=== PATIENT | female | born 1985 | race Caucasian/White ===

== ENCOUNTER 2018-03-22 16:52 | Inpatient (IN) | payer MEDICAID, OTHER ==
[~2018-03-22] VITALS: Ht 154.9 cm; Wt 74.8 kg
[~2018-03-22 16:52] MED LIST: PANT40TA25 PO; RISP3TAB6 PO
[2018-03-22] MEDS ORDERED: QUET200T PO (17:51)
[2018-03-22] MEDS ORDERED: BACI30OI10 TP (17:52)
[2018-03-22] MEDS ORDERED: DiphenhydrAMINE HCL 50 MG/ML VIAL ONE (18:09)
[2018-03-22] MEDS ORDERED: HALOPERIDOL LACTATE 5 MG/ML VIAL ONE (18:09)
[2018-03-22] MEDS ORDERED: LORazepam 2 MG/ML VIAL ONE (18:09)
[2018-03-22] MEDS ORDERED: RISP2 PO (18:11)
[2018-03-22] MEDS ORDERED: HALOPERIDOL LACTATE 5 MG/ML VIAL IM ONE (18:15)
[2018-03-22] MEDS ORDERED: LORazepam 2 MG/ML VIAL IM ONE (18:15)
[2018-03-22] MEDS ORDERED: DiphenhydrAMINE HCL 50 MG/ML VIAL IM ONE (18:15)
[2018-03-22 18:56] LABS: BASOPHILS % (AUTO) 0.6 % (0.0-2.0); EOSINOPHILS % (AUTO) 0.1 % (1.0-6.0); HEMATOCRIT 38.7 % (36-46); HEMOGLOBIN 12.9 g/dL (12.0-16.0); LYMPHOCYTES # (AUTO) 1.4 K/uL (1.0-4.8); LYMPHOCYTES % (AUTO) 12.7 % (22.0-44.0); MEAN CORPUSCULAR HEMOGLOBIN 29.1 pg (26.0-34.0); MEAN CORPUSCULAR HGB CONC 33.4 G/dL (31.0-37.0); MEAN CORPUSCULAR VOLUME 87 fL (80-100); MONOCYTES # (AUTO) 0.4 K/uL (0.1-1.0); MONOCYTES % (AUTO) 3.8 % (2.0-9.0); NEUTROPHILS # (AUTO) 9.5 K/uL (1.8-7.7); NEUTROPHILS % (AUTO) 82.8 % (40.0-70.0); PLATELET COUNT (AUTO) 223 K/uL (150-450); RED BLOOD CELL COUNT(AUTO) 4.44 MIL/uL (4.00-5.20)
[2018-03-22 19:07] LABS: ANION GAP 12 mmol/L (8-16); CALCIUM, TOTAL 8.6 mg/dL (8.8-10.5); CARBON DIOXIDE 23 mmol/L (22-29); CHLORIDE 104 mmol/L (98-107); CREATININE 0.74 mg/dL (0.60-1.30); GLOMERULAR FILTR. RATE CALC > 60 mL/min (>60); GLUCOSE,RANDOM 126 mg/dL (70-110); POTASSIUM 3.1 mmol/L (3.5-5.1); SODIUM SERUM 139 mmol/L (136-145); UREA NITROGEN, BLOOD 11 mg/dL (7-18)
[2018-03-22] MEDS ORDERED: POTASSIUM CHLORIDE 10% 40 MEQ/30 ML LIQUID UDCUP PO ONE (19:15)
[2018-03-22 19:21] LABS: ALANINE AMINOTRANSFERASE 49 U/L (12-78); ALBUMIN 4.3 g/dL (3.4-5.0); ALKALINE PHOSPHATASE 126 U/L (46-116); ASPARTATE AMINOTRANSFERASE 25 U/L (15-37); BILIRUBIN,TOTAL 0.4 mg/dL (0.1-1.0); HCG,QUANTITATIVE < 1 mIU/mL (0-6); TOTAL PROTEIN, SERUM 7.9 g/dL (6.4-8.2)
[2018-03-22] MEDS: OLANZapine 7.5 MG TABLET PO SCH (20:42)
[2018-03-22 21:35] VITALS: BP 114/75
[2018-03-22] MEDS: ZOLPIDEM TARTRATE 10 MG TABLET PO PRN (21:41)
[2018-03-23 06:21] VITALS: BP 117/72
[2018-03-23 08:20] VITALS: BP 102/68
[2018-03-23 08:53] LABS: CHOL/HDL RATIO 7.6 (3.9-5.7)
[2018-03-23] MEDS: NICOTINE 14 MG/24 HOUR PATCH TD SCH (09:06)
[2018-03-23 09:26] LABS: AMPHET/METH SCREEN,URINE NEGATIVE (NEGATIVE); BARBITURATE SCREEN, URINE NEGATIVE (NEGATIVE); BENZODIAZEPINES SCREEN,URINE NEGATIVE (NEGATIVE); CANNABINOID SCREEN,URINE NEGATIVE (NEGATIVE); COCAINE SCREEN,URINE NEGATIVE (NEGATIVE); METHADONE SCREEN, URINE NEGATIVE (NEGATIVE); OPIATE SCREEN,URINE NEGATIVE (NEGATIVE); PHENCYCLIDINE SCREEN,URINE NEGATIVE (NEGATIVE)
[2018-03-23 09:32] LABS: BILIRUBIN,URINE NEGATIVE (NEGATIVE); GLUCOSE, URINE (UA) NEGATIVE (NEGATIVE); KETONES,URINE 15 mg/dL (NEGATIVE); LEUKOCYTE ESTERASE ,URINE TRACE (NEGATIVE); NITRATE,URINE POSITIVE (NEGATIVE); OCCULT BLOOD,URINE NEGATIVE (NEGATIVE); PH,URINE 7.5 (5.0-8.0); PROTEIN,URINE NEGATIVE (NEGATIVE); UROBILINOGEN,URINE 0.2 mg/dL (<=1.0)
[2018-03-23 09:38] LABS: APPEARANCE,URINE SLIGHTLY CLOUDY (CLEAR)
[2018-03-23 10:04] LABS: BACTERIA,URINE None Seen /HPF (None Seen); RBC,URINE None Seen /HPF (0-2); WBC,URINE 0-2 /HPF (0-5)
[2018-03-23] MEDS: LORazepam 2 MG TABLET PO PRN ×2 (11:51→18:53)
[2018-03-23] MEDS: OLANZapine 5 MG RAPDIS TABLET PO PRN (11:51)
[2018-03-23 16:00] VITALS: BP 110/66
[2018-03-23] MEDS: OLANZapine 7.5 MG TABLET PO SCH (20:09)
[2018-03-24 06:11] VITALS: BP 129/90
[2018-03-24] MEDS: LORazepam 2 MG TABLET PO PRN ×2 (08:19→12:43)
[2018-03-24] MEDS: OLANZapine 5 MG RAPDIS TABLET PO PRN ×2 (08:19→12:43)
[2018-03-24] MEDS: NICOTINE 14 MG/24 HOUR PATCH TD SCH (08:20)
[2018-03-24 08:32] VITALS: BP 124/73
[2018-03-24] MEDS ORDERED: HydrOXYzine PAMOATE 50 MG CAPSULE PO PRN (11:45)
[2018-03-24] MEDS ORDERED: GuaiFENesin/D-METHORPHAN [SUGAR-FREE] 200-20MG/10 ML SYRUP UDCUP PO PRN (11:45)
[2018-03-24] MEDS ORDERED: PROMETHAZINE HCL 25 MG TABLET PO PRN (11:45)
[2018-03-24] MEDS ORDERED: MAG HYDROX/AL HYDROX/SIMETH ES 30 ML SUSPENSION UDCUP PO PRN (11:45)
[2018-03-24] MEDS ORDERED: TUBERCULIN, PURIFIED PROTEIN DERIVATIVE 5 TU/0.1 ML SYG ID ONE (11:45)
[2018-03-24] MEDS ORDERED: MAGNESIUM HYDROXIDE SUSPENSION 30 ML UDCUP PO PRN (11:45)
[2018-03-24] MEDS ORDERED: LOPERAMIDE HCL 2 MG CAPSULE PO PRN (11:45)
[2018-03-24] MEDS ORDERED: ACETAMINOPHEN 325 MG TABLET PO PRN (11:45)
[2018-03-24 16:24] VITALS: BP 98/61
[2018-03-24] MEDS: THIAMINE HCL 100 MG TABLET PO SCH (16:44)
[2018-03-24] MEDS ORDERED: PALIPERIDONE PALMITATE 234 MG/1.5 ML SYRINGE IM ONE (17:15)
[2018-03-24] MEDS ORDERED: LORazepam 2 MG/ML VIAL IM ONE (17:15)
[2018-03-24] MEDS ORDERED: DiphenhydrAMINE HCL 50 MG/ML VIAL IM ONE (17:15)
[2018-03-24] MEDS ORDERED: HALOPERIDOL LACTATE 5 MG/ML VIAL IM ONE (17:15)
[2018-03-24] MEDS ORDERED: PALIPERIDONE 3 MG ER TABLET PO SCH (21:00)
[2018-03-25 05:13] VITALS: BP 108/64
[2018-03-25 08:17] VITALS: BP 99/61
[2018-03-25] MEDS: NALTREXONE HCL 50 MG TABLET PO SCH (08:34)
[2018-03-25] MEDS: FLUoxetine HCL 20 MG CAPSULE PO SCH (08:34)
[2018-03-25] MEDS: THIAMINE HCL 100 MG TABLET PO SCH ×2 (08:34→16:35)
[2018-03-25] MEDS: MULTIVITAMINS WITH MINERALS, THERAPEUTIC TABLET PO SCH (08:34)
[2018-03-25] MEDS: FOLIC ACID 1 MG TABLET PO SCH (08:34)
[2018-03-25] MEDS: NICOTINE 14 MG/24 HOUR PATCH TD SCH (08:35)
[2018-03-25] MEDS ORDERED: DiphenhydrAMINE HCL 50 MG/ML VIAL IM ONE (15:45)
[2018-03-25] MEDS ORDERED: LORazepam 2 MG/ML VIAL IM ONE (15:45)
[2018-03-25] MEDS ORDERED: HALOPERIDOL LACTATE 5 MG/ML VIAL IM ONE (15:45)
[2018-03-25 16:12] VITALS: BP 108/58
[2018-03-25] MEDS: GABAPENTIN 300 MG CAPSULE PO SCH ×2 (16:37→20:15)
[2018-03-26 06:20] VITALS: BP 111/68
[2018-03-26 08:12] VITALS: BP 102/66
[2018-03-26] MEDS: GABAPENTIN 300 MG CAPSULE PO SCH ×2 (09:18→12:11)
[2018-03-26] MEDS: THIAMINE HCL 100 MG TABLET PO SCH ×2 (09:18→16:06)
[2018-03-26] MEDS: FOLIC ACID 1 MG TABLET PO SCH (09:18)
[2018-03-26] MEDS: FLUoxetine HCL 20 MG CAPSULE PO SCH (09:18)
[2018-03-26] MEDS: NALTREXONE HCL 50 MG TABLET PO SCH (09:18)
[2018-03-26] MEDS: NICOTINE 14 MG/24 HOUR PATCH TD SCH (09:19)
[2018-03-26] MEDS: MULTIVITAMINS WITH MINERALS, THERAPEUTIC TABLET PO SCH (09:21)
[2018-03-26 10:00] VITALS: BP 112/74
[2018-03-26] MEDS: LORazepam 2 MG TABLET PO PRN ×2 (10:09→16:06)
[2018-03-26] MEDS: PALIPERIDONE 1.5 MG ER TABLET PO PRN (10:09)
[2018-03-26] MEDS: GABAPENTIN 400 MG CAPSULE PO SCH ×2 (16:06→20:03)
[2018-03-26 16:14] VITALS: BP 110/81
[2018-03-26] MEDS ORDERED: LORazepam 2 MG/ML VIAL IM ONE (16:30)
[2018-03-26] MEDS ORDERED: HALOPERIDOL LACTATE 5 MG/ML VIAL IM ONE (16:30)
[2018-03-26] MEDS ORDERED: DiphenhydrAMINE HCL 50 MG/ML VIAL IM ONE (16:30)
[2018-03-27 01:10] VITALS: BP 107/75
[2018-03-27] MEDS: LORazepam 2 MG TABLET PO PRN ×4 (01:13→21:22)
[2018-03-27 07:38] LABS: APPEARANCE,URINE CLOUDY (CLEAR); BILIRUBIN,URINE NEGATIVE (NEGATIVE); GLUCOSE, URINE (UA) NEGATIVE (NEGATIVE); KETONES,URINE NEGATIVE (NEGATIVE); LEUKOCYTE ESTERASE ,URINE NEGATIVE (NEGATIVE); NITRATE,URINE POSITIVE (NEGATIVE); OCCULT BLOOD,URINE NEGATIVE (NEGATIVE); PROTEIN,URINE NEGATIVE (NEGATIVE); UROBILINOGEN,URINE 0.2 mg/dL (<=1.0)
[2018-03-27 08:16] VITALS: BP 115/70
[2018-03-27 08:46] LABS: BACTERIA,URINE Many /HPF (None Seen); CALCIUM OXALATE CRYSTALS,UR Few /LPF (None Seen); RBC,URINE 0-2 /HPF (0-2); SQUAMOUS EPITHELIAL CELL,UR Few /LPF (None Seen)
[2018-03-27] MEDS: NALTREXONE HCL 50 MG TABLET PO SCH (09:07)
[2018-03-27] MEDS: MULTIVITAMINS WITH MINERALS, THERAPEUTIC TABLET PO SCH (09:07)
[2018-03-27] MEDS: GABAPENTIN 400 MG CAPSULE PO SCH ×4 (09:07→20:17)
[2018-03-27] MEDS: THIAMINE HCL 100 MG TABLET PO SCH ×2 (09:08→16:07)
[2018-03-27] MEDS: FOLIC ACID 1 MG TABLET PO SCH (09:09)
[2018-03-27] MEDS: FLUoxetine HCL 20 MG CAPSULE PO SCH (09:09)
[2018-03-27] MEDS: NICOTINE 14 MG/24 HOUR PATCH TD SCH (09:10)
[2018-03-27] MEDS: PALIPERIDONE 1.5 MG ER TABLET PO PRN (15:10)
[2018-03-27 16:06] VITALS: BP 111/58
[2018-03-27] MEDS: NITROFURANTOIN/NITROFURAN MAC 100 MG CAPSULE [MACROBID] PO SCH (16:07)
[2018-03-28] MEDS: ZOLPIDEM TARTRATE 10 MG TABLET PO PRN ×2 (02:16→20:53)
[2018-03-28] MEDS: MULTIVITAMINS WITH MINERALS, THERAPEUTIC TABLET PO SCH (08:13)
[2018-03-28] MEDS: NITROFURANTOIN/NITROFURAN MAC 100 MG CAPSULE [MACROBID] PO SCH ×2 (08:13→16:03)
[2018-03-28] MEDS: FOLIC ACID 1 MG TABLET PO SCH (08:13)
[2018-03-28] MEDS: GABAPENTIN 400 MG CAPSULE PO SCH ×4 (08:13→20:53)
[2018-03-28] MEDS: NALTREXONE HCL 50 MG TABLET PO SCH (08:13)
[2018-03-28] MEDS: THIAMINE HCL 100 MG TABLET PO SCH ×2 (08:13→16:03)
[2018-03-28] MEDS: FLUoxetine HCL 20 MG CAPSULE PO SCH (08:13)
[2018-03-28] MEDS: NICOTINE 14 MG/24 HOUR PATCH TD SCH (08:14)
[2018-03-28 08:39] VITALS: BP 110/68
[2018-03-28] MEDS ORDERED: PALIPERIDONE PALMITATE 156 MG/ML SYRINGE IM ONE (09:00)
[2018-03-28] MEDS: LORazepam 2 MG TABLET PO PRN ×3 (09:35→20:54)
[2018-03-28] MEDS: PALIPERIDONE 1.5 MG ER TABLET PO PRN (13:45)
[2018-03-28 16:06] VITALS: BP 118/76
[2018-03-29 05:50] VITALS: BP 124/81
[2018-03-29 08:16] VITALS: BP 118/84
[2018-03-29] MEDS: FOLIC ACID 1 MG TABLET PO SCH (08:20)
[2018-03-29] MEDS: GABAPENTIN 400 MG CAPSULE PO SCH (08:20)
[2018-03-29] MEDS: MULTIVITAMINS WITH MINERALS, THERAPEUTIC TABLET PO SCH (08:20)
[2018-03-29] MEDS: NALTREXONE HCL 50 MG TABLET PO SCH (08:20)
[2018-03-29] MEDS: NITROFURANTOIN/NITROFURAN MAC 100 MG CAPSULE [MACROBID] PO SCH (08:20)
[2018-03-29] MEDS: FLUoxetine HCL 20 MG CAPSULE PO SCH (08:21)
[2018-03-29] MEDS: THIAMINE HCL 100 MG TABLET PO SCH (08:21)
[2018-03-29] MEDS: NICOTINE 14 MG/24 HOUR PATCH TD SCH (08:21)
[2018-03-29] MEDS ORDERED: GABA-533 PO (09:39)
[2018-03-29] MEDS ORDERED: NALT50TA6 PO (09:39)
[2018-03-29] MEDS ORDERED: MACR100 PO (09:39)
[2018-03-29] MEDS ORDERED: FLUO-191 PO (09:39)
[2018-03-29] MEDS ORDERED: PALI117D IM (16:22)
== END 2018-03-29 10:15 | disposition home or self-care (01) | DRG 750 ==
LOC: EMS 16:53 → B3A 20:33
PROVIDERS: ADMIT Psychiatry & Neurology Psychiatry; ATTEND Psychiatry & Neurology Psychiatry
DX: F20.0 Paranoid schizophrenia (principal); F72 Severe intellectual disabilities; E87.6 Hypokalemia; F17.210 Nicotine dependence, cigarettes, uncomplicated; F41.9 Anxiety disorder, unspecified; Z91.19 Patient's noncompliance with other medical treatment and regimen; Z79.899 Other long term (current) drug therapy
CPT/HCPCS: 80307; 87081; 87086; 96372; G0480; J1200; J1630; J2060

== ENCOUNTER 2022-07-25 21:05 | Inpatient (IN) | payer MEDICAID ==
[~2022-07-25] VITALS: Ht 154.9 cm; Wt 78.9 kg
[~2022-07-25 21:05] MED LIST changes: +FLUO-177 PO; +GABA-1201 PO; +NALT50TA6 PO; +NITR-75 PO; +PALI117D IM; -PANT40TA25 PO; -RISP3TAB6 PO
[2022-07-25 23:27] LABS: COVID AG,FIA SOURCE NASAL SWAB
[2022-07-25 23:39] LABS: EOSINOPHILS % (AUTO) 0.4 % (1.0-6.0); HEMATOCRIT 39.8 % (36-46); HEMOGLOBIN 13.3 g/dL (12.0-16.0); LYMPHOCYTES # (AUTO) 2.8 K/uL (1.0-4.8); LYMPHOCYTES % (AUTO) 31.3 % (22.0-44.0); MEAN CORPUSCULAR HEMOGLOBIN 31.1 pg (26.0-34.0); MEAN CORPUSCULAR HGB CONC 33.3 G/dL (31.0-37.0); MEAN CORPUSCULAR VOLUME 93 fL (80-100); MONOCYTES # (AUTO) 0.7 K/uL (0.1-1.0); MONOCYTES % (AUTO) 8.2 % (2.0-9.0); NEUTROPHILS # (AUTO) 5.4 K/uL (1.8-7.7); NEUTROPHILS % (AUTO) 59.1 % (40.0-70.0); PLATELET COUNT (AUTO) 210 K/uL (150-450); RED BLOOD CELL COUNT(AUTO) 4.27 MIL/uL (4.00-5.20)
[2022-07-25 23:47] LABS: ANION GAP 9 mmol/L (8-16); CALCIUM, TOTAL 8.4 mg/dL (8.8-10.5); CARBON DIOXIDE 25 mmol/L (22-29); CHLORIDE 103 mmol/L (98-107); CREATININE 0.48 mg/dL (0.60-1.30); GLOMERULAR FILTR. RATE CALC > 60 mL/min (>60); GLUCOSE,RANDOM 84 mg/dL (70-110); POTASSIUM 3.5 mmol/L (3.5-5.1); SODIUM SERUM 137 mmol/L (136-145); UREA NITROGEN, BLOOD 7 mg/dL (7-18)
[2022-07-25 23:58] LABS: ALANINE AMINOTRANSFERASE 25 U/L (12-78); ALBUMIN 3.8 g/dL (3.4-5.0); ALKALINE PHOSPHATASE 90 U/L (46-116); ASPARTATE AMINOTRANSFERASE 8 U/L (15-37); BILIRUBIN,TOTAL 0.2 mg/dL (0.1-1.0); HCG,QUANTITATIVE < 1 mIU/mL (0-6); TOTAL PROTEIN, SERUM 7.2 g/dL (6.4-8.2)
[2022-07-26] MEDS ORDERED: LIDOCAINE 1% 10 ML VIAL SQ ONE (00:15)
[2022-07-26] MEDS ORDERED: BACITRACIN 0.9 GM PACKET OINTMENT TP ONE (01:45)
[2022-07-26] MEDS: HALOPERIDOL 5 MG TABLET PO PRN (05:37)
[2022-07-26] MEDS: LORazepam 2 MG TABLET PO PRN ×2 (05:37→20:37)
[2022-07-26] MEDS ORDERED: ACETAMINOPHEN 500 MG TABLET PO ONE (06:30)
[2022-07-26] MEDS ORDERED: ACETAMINOPHEN 325 MG TABLET PO PRN (09:00)
[2022-07-26] MEDS ORDERED: CloNIDine HCL 0.1 MG TABLET PO PRN (09:00)
[2022-07-26] MEDS ORDERED: MAGNESIUM HYDROXIDE SUSPENSION 30 ML UDCUP PO PRN (09:00)
[2022-07-26] MEDS ORDERED: ALBUTEROL SULFATE HFA 90 MCG/PUFF 8 GM INHALER IH PRN (09:00)
[2022-07-26] MEDS ORDERED: MAG HYDROX/AL HYDROX/SIMETH ES 30 ML SUSPENSION UDCUP PO PRN (09:00)
[2022-07-26] MEDS ORDERED: IBUPROFEN 600 MG TABLET PO PRN (09:00)
[2022-07-26] MEDS ORDERED: LOPERAMIDE HCL 2 MG CAPSULE PO PRN (09:00)
[2022-07-26] MEDS ORDERED: DOCUSATE SODIUM 100 MG CAPSULE PO PRN (09:00)
[2022-07-26] MEDS ORDERED: ONDANSETRON HCL 4 MG TABLET PO PRN (09:00)
[2022-07-26] MEDS ORDERED: BACITRACIN 28 GM OINTMENT TP PRN (09:00)
[2022-07-26] MEDS ORDERED: PETROLATUM,WHITE 28 GM JELLY TP PRN (09:00)
[2022-07-26] MEDS ORDERED: OMEPRAZOLE 20 MG CAPSULE PO PRN (09:00)
[2022-07-26 11:22] VITALS: BP 116/83
[2022-07-26] MEDS: ZOLPIDEM TARTRATE 10 MG TABLET PO PRN (20:37)
[2022-07-27 01:22] VITALS: BP 113/69
[2022-07-27] MEDS: LORazepam 2 MG TABLET PO PRN ×4 (06:47→23:47)
[2022-07-27] MEDS: HALOPERIDOL 5 MG TABLET PO PRN ×3 (06:47→23:43)
[2022-07-27 06:50] VITALS: BP 125/80
[2022-07-27 08:06] LABS: APPEARANCE,URINE HAZY (CLEAR); BILIRUBIN,URINE NEGATIVE (NEGATIVE); GLUCOSE, URINE (UA) NEGATIVE (NEGATIVE); KETONES,URINE NEGATIVE (NEGATIVE); LEUKOCYTE ESTERASE ,URINE NEGATIVE (NEGATIVE); NITRATE,URINE NEGATIVE (NEGATIVE); OCCULT BLOOD,URINE NEGATIVE (NEGATIVE); PH,URINE 8.5 (5.0-8.0); PROTEIN,URINE NEGATIVE (NEGATIVE); SPECIFIC GRAVITIY, URINE 1.014 (1.003-1.030)
[2022-07-27 08:08] LABS: AMPHET/METH SCREEN,URINE NEGATIVE (NEGATIVE); BARBITURATE SCREEN, URINE NEGATIVE (NEGATIVE); BENZODIAZEPINES SCREEN,URINE NEGATIVE (NEGATIVE); CANNABINOID SCREEN,URINE NEGATIVE (NEGATIVE); COCAINE SCREEN,URINE NEGATIVE (NEGATIVE); METHADONE SCREEN, URINE NEGATIVE (NEGATIVE); OPIATE SCREEN,URINE NEGATIVE (NEGATIVE); PHENCYCLIDINE SCREEN,URINE NEGATIVE (NEGATIVE)
[2022-07-27 08:52] VITALS: BP 117/85
[2022-07-27] MEDS ORDERED: PALIPERIDONE PALMITATE 234 MG/1.5 ML SYRINGE IM SCH (16:00)
[2022-07-27] MEDS: ZOLPIDEM TARTRATE 10 MG TABLET PO PRN (20:19)
[2022-07-27 21:58] VITALS: BP 114/78
[2022-07-28] MEDS: LORazepam 2 MG TABLET PO PRN ×3 (08:10→20:24)
[2022-07-28] MEDS: HALOPERIDOL 5 MG TABLET PO PRN ×3 (08:10→21:29)
[2022-07-28 08:39] VITALS: BP 146/104
[2022-07-28 20:11] VITALS: BP 101/65
[2022-07-28] MEDS: ZOLPIDEM TARTRATE 10 MG TABLET PO PRN (20:24)
[2022-07-29] MEDS: LORazepam 2 MG TABLET PO PRN ×2 (00:55→11:18)
[2022-07-29 10:47] VITALS: BP 108/62
[2022-07-29] MEDS: HALOPERIDOL 5 MG TABLET PO PRN (11:18)
[2022-07-29] MEDS ORDERED: PALI234D IM (14:27)
== END 2022-07-29 15:37 | disposition home or self-care (01) | DRG 750 ==
LOC: EMS 21:05 → B3A 07-26 04:17
PROVIDERS: ADMIT Psychiatry & Neurology Psychiatry; ATTEND Psychiatry & Neurology Psychiatry
DX: F25.9 Schizoaffective disorder, unspecified (principal); R45.851 Suicidal ideations; F32.A Depression, unspecified; Z20.822 Contact with and (suspected) exposure to COVID-19; K59.00 Constipation, unspecified; F41.9 Anxiety disorder, unspecified; G47.00 Insomnia, unspecified; Z91.51 Personal history of suicidal behavior
CPT/HCPCS: 12002; 80053; 80307; 81003; 84702; 85025; 99285; G0480; J3490